=== PATIENT | male | born 1975 | race Caucasian/White ===

== ENCOUNTER 2017-08-05 08:56 | Emergency (ER) | payer BC, OTHER ==
[~2017-08-05] VITALS: Ht 175.3 cm; Wt 73.9 kg
--- NOTE | 2017-08-05 09:00 | NUR ---
Dr Stauffer at the bedside for eval and exam.
[2017-08-05 09:04] VITALS: BP 118/70
--- NOTE | 2017-08-05 09:08 | NUR ---
Patient discharged to home in stable conditon. Written and verbal after care instructions given. Patient verbalizes understanding of instructions.
== END 2017-08-05 09:08 | disposition home or self-care (01) ==
LOC: ER 08:56
DX: M54.5 Low back pain (principal)
CPT/HCPCS: A4663

== ENCOUNTER 2018-02-12 10:18 | Emergency (ER) | payer BC, OTHER ==
[~2018-02-12] VITALS: Ht 175.3 cm; Wt 74.8 kg
--- NOTE | 2018-02-12 10:33 | NUR ---
PATIENT WAS SEEN BY MD FOR C/O BACK PAIN. DC, RX AND FOLLOW UP INSTRUCTIONS GIVEN AND EXPLAINED TO PATIENT WHO STATES HE UNDERSTANDS ALL INSTRUCTIONS.
== END 2018-02-12 10:36 | disposition home or self-care (01) ==
LOC: ER 10:18
DX: M54.5 Low back pain (principal)
CPT/HCPCS: A4663

== ENCOUNTER 2018-12-13 08:42 | Emergency (ER) | payer BC, OTHER ==
[~2018-12-13] VITALS: Ht 175.3 cm; Wt 74.8 kg
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
--- NOTE | 2018-12-13 08:51 | NUR ---
Patient discharged to home in stable conditon. Written and verbal after care instructions given to patient. Patient verbalizes understanding of instructions.
== END 2018-12-13 08:52 | disposition home or self-care (01) ==
LOC: ER 08:42
DX: M54.5 Low back pain (principal); M54.6 Pain in thoracic spine; V53.5XXA Driver of pick-up truck or van injured in collision with car, pick-up truck or van in traffic accident, initial encounter; Y93.89 Activity, other specified; Y92.89 Other specified places as the place of occurrence of the external cause; Y99.8 Other external cause status
CPT/HCPCS: A4663

== ENCOUNTER 2019-05-07 14:20 | Emergency (ER) | payer BC, OTHER ==
[~2019-05-07] VITALS: Ht 175.3 cm; Wt 74.8 kg
--- NOTE | 2019-05-07 15:10 | NUR ---
Patient discharged to home in stable conditon & with steady gait. Verbal after care instructions given to patient by MD himself. Patient verbalizes understanding & compliance of instructions.
== END 2019-05-07 15:11 | disposition home or self-care (01) ==
LOC: ER 14:20
DX: M54.5 Low back pain (principal)
CPT/HCPCS: A4663

== ENCOUNTER 2019-05-30 12:38 | Emergency (ER) | payer BC, OTHER ==
[~2019-05-30] VITALS: Ht 175.3 cm; Wt 74.8 kg
--- NOTE | 2019-05-30 12:46 | NUR ---
Patient discharged to home in stable conditon. Written and verbal after care instructions given. Patient verbalizes understanding of instructions.
--- NOTE | 2019-05-30 12:46 | NUR ---
Luis greene in ED - 05/30/19 at 1247 by TITO Patient discharged to home in stable conditon & brisk steady gait. Written and verbal after care instructions given to patient. Patient verbalizes understanding of instructions.
== END 2019-05-30 12:51 | disposition home or self-care (01) ==
LOC: ER 12:38
DX: M54.5 Low back pain (principal)
CPT/HCPCS: A4663

== ENCOUNTER 2020-03-04 12:41 | Emergency (ER) | payer BC, OTHER ==
[~2020-03-04] VITALS: Ht 167.6 cm; Wt 68.0 kg
[2020-03-04 13:26] LABS: *BILIRUBIN,URIN NEGATIVE (NEGATIVE); *BLOOD, URINE NEGATIVE (NEGATIVE); *CLARITY,URINE CLEAR (CLEAR); *COLOR,URINE YELLOW (YELLOW); *KETONES,URINE NEGATIVE (NEGATIVE); *UROBILINOGEN,URINE 0.2 E.U./dl (NORMAL); LEUKOCYTE ESTERASE ,URINE NEGATIVE (NEGATIVE); NITRITE, URINE NEGATIVE (NEGATIVE); PH,URINE 6.5 (5.0-8.0); UGLUCOSE NEGATIVE (NEGATIVE)
--- NOTE | 2020-03-04 13:42 | NUR ---
Patient discharged to home in stable condition. Written and verbal after care instructions given. Patient verbalizes understanding of instructions. pt walks in steady gait.Stressed follow up or return to ER for worsening s/s.
[2020-03-04 13:43] VITALS: BP 151/88
== END 2020-03-04 13:44 | disposition home or self-care (01) ==
LOC: ER 12:41
DX: J93.9 Pneumothorax, unspecified (principal); T79.7XXA Traumatic subcutaneous emphysema, initial encounter; X50.0XXA Overexertion from strenuous movement or load, initial encounter; X50.9XXA Other and unspecified overexertion or strenuous movements or postures, initial encounter; G89.29 Other chronic pain; M54.9 Dorsalgia, unspecified
CPT/HCPCS: 71045; 93005; A4663

== ENCOUNTER 2020-03-11 14:47 | Emergency (ER) | payer BC, OTHER ==
[~2020-03-11] VITALS: Ht 175.3 cm; Wt 70.3 kg
[2020-03-11] MEDS ORDERED: IV NORMAL SALINE 1000 ML BAG IV ONE (15:00)
[2020-03-11] MEDS ORDERED: MORPHINE SULFATE 4 MG/1 ML DISP.SYRIN ONE (15:10)
[2020-03-11 15:14] LABS: BASOPHILS # (AUTO) 0.1 K/uL (0.0-8.0); BASOPHILS % (AUTO) 0.8 % (0.0-2.0); EOSINOPHILS # (AUTO) 0.2 K/uL (0.0-0.7); EOSINOPHILS % (AUTO) 2.7 % (0.0-7.0); HEMOGLOBIN 14.4 g/dL (12.5-16.3); LYMPHOCYTES # (AUTO) 2.3 K/uL (20.0-40.0); LYMPHOCYTES % (AUTO) 30.2 % (20.5-51.5); MEAN CORPUSCULAR HEMOGLOBIN 31.2 uug (23.8-33.4); MEAN CORPUSCULAR HGB CONC 34 g/dL (32.5-36.3); MEAN CORPUSCULAR VOLUME 90.9 fL (73.0-96.2); MONOCYTES # (AUTO) 0.8 K/uL (2.0-10.0); MONOCYTES % (AUTO) 10.1 % (0.0-11.0); NEUTROPHILS # (AUTO) 4.4 K/uL (1.8-8.9); NEUTROPHILS % (AUTO) 56.2 % (38.5-71.5); PLATELET COUNT (AUTO) 344 K/uL (152-348); RED BLOOD CELL COUNT(AUTO) 4.61 MIL/uL (4.06-5.63); WHITE BLOOD COUNT (AUTO) 7.8 K/uL (3.6-10.2)
[2020-03-11] MEDS ORDERED: ONDANSETRON 4 MG/2 ML VIAL IV ONE (15:15)
[2020-03-11] MEDS ORDERED: MORPHINE SULFATE 4 MG/1 ML DISP.SYRIN IV ONE (15:15)
[2020-03-11] MEDS ORDERED: ONDANSETRON 4 MG/2 ML VIAL ONE (15:16)
[2020-03-11 15:19] LABS: CREATININE 1.3 mg/dL (0.6-1.3); POTASSIUM 3.8 mmol/L (3.5-5.1)
[2020-03-11] MEDS ORDERED: IOHEXOL 300MG/ML 100 ML INFUS..BTL ONE (15:22)
[2020-03-11] MEDS ORDERED: IV NORMAL SALINE 250 ML IV ONE (15:22)
[2020-03-11] MEDS ORDERED: SWABABLE VALVE TRANSFER SET EA MC ONE (15:22)
[2020-03-11 15:25] LABS: BILIRUBIN,TOTAL 0.6 mg/dL (0.2-1.0); TOTAL PROTEIN, SERUM 8.5 g/dL (6.4-8.2)
--- NOTE | 2020-03-11 15:52 | NUR ---
PATIENT BACK FROM CT. NOT IN ANY DISTRESS.
--- NOTE | 2020-03-11 16:20 | NUR ---
DR VEGA MADE PATIENT AWARE OF TEST RESULTS.
--- NOTE | 2020-03-11 16:40 | NUR ---
IV removed. Catheter intact and site benign. Pressure and 4x4 gauze applied to site. No bleeding noted.
--- NOTE | 2020-03-11 16:43 | NUR ---
Patient discharged to home in stable condition. Written and verbal after care instructions given. Patient verbalizes understanding of instructions. Stressed follow up or return to ER for worsening s/s.
[2020-03-11 16:45] VITALS: BP 120/81
== END 2020-03-11 16:48 | disposition home or self-care (01) ==
LOC: ER 14:48
DX: S27.2XXA Traumatic hemopneumothorax, initial encounter (principal); S22.41XA Multiple fractures of ribs, right side, initial encounter for closed fracture; S22.009A Unspecified fracture of unspecified thoracic vertebra, initial encounter for closed fracture; X58.XXXA Exposure to other specified factors, initial encounter; Y92.89 Other specified places as the place of occurrence of the external cause; Y99.8 Other external cause status; Z20.828 Contact with and (suspected) exposure to other viral communicable diseases
CPT/HCPCS: 36415; 71260; 80053; 85025; 96361; 96374; 96375; 99285; J2270; J2405; Q9967; U0003; A4663; J7030; J7050

== ENCOUNTER 2020-06-25 08:08 | Emergency (ER) | payer BC, OTHER ==
[~2020-06-25] VITALS: Ht 170.2 cm; Wt 64.4 kg
[2020-06-25] MEDS ORDERED: ONDANSETRON 4 MG/2 ML VIAL ONE (08:29)
[2020-06-25] MEDS ORDERED: ONDANSETRON 4 MG/2 ML VIAL IV ONE (08:30)
[2020-06-25] MEDS ORDERED: IV NORMAL SALINE 1000 ML BAG IV ONE (08:30)
[2020-06-25 08:37] LABS: BASOPHILS % (AUTO) 0.6 % (0.0-2.0); EOSINOPHILS % (AUTO) 0.8 % (0.0-7.0); HEMATOCRIT 39.6 % (36.7-47.1); HEMOGLOBIN 14.1 g/dL (12.5-16.3); LYMPHOCYTES # (AUTO) 2.4 K/uL (20.0-40.0); LYMPHOCYTES % (AUTO) 44.7 % (20.5-51.5); MEAN CORPUSCULAR HEMOGLOBIN 32.8 uug (23.8-33.4); MEAN CORPUSCULAR HGB CONC 36 g/dL (32.5-36.3); MEAN CORPUSCULAR VOLUME 92.2 fL (73.0-96.2); MONOCYTES # (AUTO) 0.7 K/uL (2.0-10.0); MONOCYTES % (AUTO) 13.4 % (0.0-11.0); NEUTROPHILS # (AUTO) 2.2 K/uL (1.8-8.9); NEUTROPHILS % (AUTO) 40.5 % (38.5-71.5); PLATELET COUNT (AUTO) 201 K/uL (152-348); RED BLOOD CELL COUNT(AUTO) 4.29 MIL/uL (4.06-5.63); WHITE BLOOD COUNT (AUTO) 5.4 K/uL (3.6-10.2)
[2020-06-25 08:52] LABS: BILIRUBIN,DIRECT 0.4 mg/dL (0.0-0.2); CREATININE 1.2 mg/dL (0.6-1.3); POTASSIUM 2.9 mmol/L (3.5-5.1); TOTAL PROTEIN, SERUM 7.6 g/dL (6.4-8.2)
[2020-06-25] MEDS ORDERED: POTASSIUM CHLORIDE 20 MEQ TAB.PRT.SR PO ONE (09:15)
[2020-06-25] MEDS ORDERED: POTASSIUM CHLORIDE 20 MEQ TAB.PRT.SR ONE (09:20)
[2020-06-25 10:03] VITALS: BP 129/81
== END 2020-06-25 10:03 | disposition home or self-care (01) ==
LOC: ER 08:08
DX: K52.9 Noninfective gastroenteritis and colitis, unspecified (principal); E87.6 Hypokalemia; G89.29 Other chronic pain; M54.9 Dorsalgia, unspecified; Z20.828 Contact with and (suspected) exposure to other viral communicable diseases
CPT/HCPCS: 36415; 80048; 80076; 83690; 85025; 87426; 96361; 96374; 99284; J2405; A4663; J7030

== ENCOUNTER 2020-11-12 21:52 | Emergency (ER) | payer BC, OTHER ==
[~2020-11-12] VITALS: Ht 172.7 cm; Wt 61.2 kg
[2020-11-12] MEDS ORDERED: NITROGLYCERIN OINT 1 GM PACKET TP ONE ×2 (22:15→22:30)
[2020-11-12] MEDS ORDERED: ENALAPRILAT DIHYDRATE 1.25 MG/1 ML VIAL IV ONE ×2 (22:15→22:30)
[2020-11-12] MEDS ORDERED: ONDANSETRON 4 MG/2 ML VIAL IV ONE (22:15)
[2020-11-12] MEDS ORDERED: IV NORMAL SALINE 1000 ML BAG IV ONE ×2 (22:15→23:45)
[2020-11-12 22:30] LABS: BASOPHILS % (AUTO) 0.2 % (0.0-2.0); EOSINOPHILS % (AUTO) 0.2 % (0.0-7.0); HEMATOCRIT 42.1 % (36.7-47.1); HEMOGLOBIN 14.6 g/dL (12.5-16.3); LYMPHOCYTES # (AUTO) 1.3 K/uL (20.0-40.0); LYMPHOCYTES % (AUTO) 22.8 % (20.5-51.5); MEAN CORPUSCULAR HEMOGLOBIN 31.2 uug (23.8-33.4); MEAN CORPUSCULAR HGB CONC 35 g/dL (32.5-36.3); MONOCYTES # (AUTO) 0.7 K/uL (2.0-10.0); MONOCYTES % (AUTO) 11.8 % (0.0-11.0); NEUTROPHILS # (AUTO) 3.6 K/uL (1.8-8.9); PLATELET COUNT (AUTO) 232 K/uL (152-348); RED BLOOD CELL COUNT(AUTO) 4.68 MIL/uL (4.06-5.63); WHITE BLOOD COUNT (AUTO) 5.6 K/uL (3.6-10.2)
[2020-11-12] MEDS ORDERED: ONDANSETRON 4 MG/2 ML VIAL ONE (22:30)
[2020-11-12 22:41] LABS: CREATININE 1.1 mg/dL (0.6-1.3); POTASSIUM 3.1 mmol/L (3.5-5.1)
[2020-11-12 22:53] LABS: BILIRUBIN,DIRECT 0.2 mg/dL (0.0-0.2); BILIRUBIN,TOTAL 0.7 mg/dL (0.2-1.0); TOTAL PROTEIN, SERUM 8.2 g/dL (6.4-8.2)
[2020-11-12] MEDS ORDERED: POTASSIUM CHLORIDE 20 MEQ TAB.PRT.SR PO ONE (23:00)
[2020-11-12] MEDS ORDERED: POTASSIUM CHLORIDE 20 MEQ TAB.PRT.SR ONE (23:23)
[2020-11-12] MEDS ORDERED: CLONIDINE HCL 0.1 MG TABLET PO ONE (23:30)
[2020-11-12] MEDS ORDERED: METOPROLOL TARTRATE 5 MG/5 ML VIAL IVP ONE (23:30)
[2020-11-12 23:39] LABS: *BILIRUBIN,URIN NEGATIVE (NEGATIVE); *BLOOD, URINE NEGATIVE (NEGATIVE); *CLARITY,URINE CLEAR (CLEAR); *COLOR,URINE LIGHT YELLOW (YELLOW); *KETONES,URINE NEGATIVE (NEGATIVE); *UROBILINOGEN,URINE 0.2 E.U./dl (NORMAL); LEUKOCYTE ESTERASE ,URINE NEGATIVE (NEGATIVE); NITRITE, URINE NEGATIVE (NEGATIVE); UGLUCOSE NEGATIVE (NEGATIVE)
[2020-11-13] MEDS ORDERED: ENAL2.5T17 PO (00:14)
[2020-11-13] MEDS ORDERED: ONDA4TAB11 PO (00:14)
[2020-11-13] MEDS ORDERED: CLON0.1T PO (00:14)
--- NOTE | 2020-11-13 00:19 | NUR ---
Patient discharged to home in stable condition. Written and verbal after care instructions given. Patient verbalizes understanding of instructions. Stressed follow up or return to ER for worsening s/s. IV removed. Catheter intact and site benign. Pressure and 4x4 gauze applied to site. No bleeding noted. Patient ambulated with steady gait.
[2020-11-13 00:22] VITALS: BP 139/94
== END 2020-11-13 00:22 | disposition home or self-care (01) ==
LOC: ER 21:54
DX: I10 Essential (primary) hypertension (principal); R55 Syncope and collapse; E87.6 Hypokalemia; Z82.49 Family history of ischemic heart disease and other diseases of the circulatory system; Z79.899 Other long term (current) drug therapy; Z20.822 Contact with and (suspected) exposure to COVID-19
CPT/HCPCS: 36415; 71045; 80048; 80076; 81003; 83880; 84484; 85025; 85379; 85730; 87426; 93005; 96361; 96374; 96375; 99285; J2405; J3490; U0003; 70030-TC; A4663; J7030

== ENCOUNTER 2021-08-17 12:06 | Emergency (ER) | payer BC, OTHER ==
[~2021-08-17] VITALS: Ht 175.3 cm; Wt 74.8 kg
[~2021-08-17 12:06] MED LIST: CLON0.1T PO; ENAL2.5T17 PO; ONDA4TAB11 PO
[2021-08-17] MEDS ORDERED: [UNRECOGNIZED DRUG - CODE] PO (12:28)
[2021-08-17] MEDS ORDERED: AMOX875T2 PO (12:28)
[2021-08-17] MEDS ORDERED: OXYC-133 PO (13:15)
== END 2021-08-17 12:42 | disposition home or self-care (01) ==
LOC: ER 12:06
DX: J02.8 Acute pharyngitis due to other specified organisms (principal); Z20.822 Contact with and (suspected) exposure to COVID-19; M54.50 Low back pain, unspecified; J45.909 Unspecified asthma, uncomplicated
CPT/HCPCS: 86403; 87070; A4663

== ENCOUNTER 2021-10-04 18:42 | Emergency (ER) | payer BC, OTHER ==
[~2021-10-04] VITALS: Ht 175.3 cm; Wt 74.8 kg
[~2021-10-04 18:42] MED LIST changes: +AMOX875T2 PO; +OXYC-133 PO; +[UNRECOGNIZED DRUG - CODE] PO
--- NOTE | 2021-10-04 18:50 | NUR ---
PT IS IN ROOM #5. DR LANTIGUA EVALUATED THE PT.
[2021-10-04] MEDS ORDERED: CYCL5TAB PO (18:56)
[2021-10-04] MEDS ORDERED: OXYC-128 PO (18:56)
== END 2021-10-04 19:15 | disposition home or self-care (01) ==
LOC: ER 18:43
DX: M54.50 Low back pain, unspecified (principal); G89.29 Other chronic pain; Z87.09 Personal history of other diseases of the respiratory system
CPT/HCPCS: A4663

== ENCOUNTER 2021-12-12 18:05 | Emergency (ER) | payer BC, OTHER ==
[~2021-12-12] VITALS: Ht 175.3 cm; Wt 74.8 kg
[~2021-12-12 18:05] MED LIST changes: +CYCL5TAB PO
[2021-12-12] MEDS ORDERED: LORA2TAB95 PO (18:18)
== END 2021-12-12 18:26 | disposition home or self-care (01) ==
LOC: ER 18:07
DX: F41.9 Anxiety disorder, unspecified (principal)
CPT/HCPCS: A4663

== ENCOUNTER 2022-01-08 22:27 | Emergency (ER) | payer BC, OTHER ==
[~2022-01-08] VITALS: Ht 175.3 cm; Wt 74.8 kg
[~2022-01-08 22:27] MED LIST changes: -AMOX875T2 PO; -CLON0.1T PO; -CYCL5TAB PO; -ENAL2.5T17 PO; +LORA2TAB95 PO; -ONDA4TAB11 PO; -OXYC-133 PO; -[UNRECOGNIZED DRUG - CODE] PO
--- NOTE | 2022-01-08 22:30 | NUR ---
Dr. Tomas at bedside for MSE.
[2022-01-08] MEDS ORDERED: LORA-259 PO (22:52)
[2022-01-08] MEDS ORDERED: OXYC-128 PO (22:52)
--- NOTE | 2022-01-08 22:55 | NUR ---
Patient discharged to home in stable condition. Written and verbal after care instructions given. Patient verbalizes understanding of instructions. Stressed follow up or return to ER for worsening s/s. Patient out of ER with steady gait, no acute signs of distress, VSS, all belongings taken.
[2022-01-08 22:56] VITALS: BP 135/66
== END 2022-01-08 22:56 | disposition home or self-care (01) ==
LOC: ER 22:40
DX: M54.9 Dorsalgia, unspecified (principal); F41.9 Anxiety disorder, unspecified; G89.29 Other chronic pain; Z87.09 Personal history of other diseases of the respiratory system
CPT/HCPCS: A4663

== ENCOUNTER 2022-03-24 11:45 | Emergency (ER) | payer OTHER ==
[~2022-03-24] VITALS: Ht 175.3 cm; Wt 74.8 kg
[~2022-03-24 11:45] MED LIST changes: +LORA-259 PO; +OXYC-128 PO
--- NOTE | 2022-03-24 11:46 | NUR ---
MD at bedside, medical screening exam in progress.
--- NOTE | 2022-03-24 12:00 | NUR ---
MD performed suture removal on RLQ and mid abdomen.
[2022-03-24] MEDS ORDERED: NEOMY/BACITRA/POLYMYXIN B OINT UD PACKET TP ONE (12:05)
[2022-03-24 12:36] VITALS: BP 122/70
== END 2022-03-24 12:36 | disposition home or self-care (01) ==
LOC: ER 11:45
DX: S31.119D Laceration without foreign body of abdominal wall, unspecified quadrant without penetration into peritoneal cavity, subsequent encounter (principal); X99.1XXD Assault by knife, subsequent encounter; J45.909 Unspecified asthma, uncomplicated; G89.29 Other chronic pain; M54.9 Dorsalgia, unspecified; M79.661 Pain in right lower leg
CPT/HCPCS: A4663

== ENCOUNTER 2022-03-29 09:36 | Emergency (ER) | payer OTHER ==
[~2022-03-29] VITALS: Ht 170.2 cm; Wt 79.4 kg
--- NOTE | 2022-03-29 10:06 | NUR ---
Pt arrived in ER using crutches, pt has sutures approximate to Rt hip x3. The suture site is C/D/I. pt c/o hip pain while sitting, standing and more w/ walking.
[2022-03-29] MEDS ORDERED: CEPH500C2 PO (10:18)
[2022-03-29] MEDS ORDERED: IBUP-1955 PO (10:18)
--- NOTE | 2022-03-29 10:33 | NUR ---
Dr Atkins at the bedside for MSE.
--- NOTE | 2022-03-29 10:35 | NUR ---
Dr Lentz removed the sutures, no acute bleeding and no S/S infection noted. Pt is currently on ABX.
--- NOTE | 2022-03-29 10:51 | NUR ---
Patient discharged to home in stable condition. Written and verbal after care instructions given. Patient verbalizes understanding of instructions. Stressed follow up or return to ER for worsening s/s. pt left ER using crutches.
[2022-03-29 10:52] VITALS: BP 140/97
== END 2022-03-29 10:53 | disposition home or self-care (01) ==
LOC: ER 09:36
DX: S31.113D Laceration without foreign body of abdominal wall, right lower quadrant without penetration into peritoneal cavity, subsequent encounter (principal); X99.1XXD Assault by knife, subsequent encounter
CPT/HCPCS: A4663

== ENCOUNTER 2022-05-04 14:35 | Emergency (ER) | payer BC, OTHER ==
[~2022-05-04] VITALS: Ht 167.6 cm; Wt 72.6 kg
[~2022-05-04 14:35] MED LIST changes: +CEPH500C2 PO; +IBUP-1955 PO
[2022-05-04] MEDS ORDERED: IV NORMAL SALINE 1000 ML BAG IV ONE (14:45)
[2022-05-04 15:00] LABS: HEMATOCRIT 44.2 % (36.7-47.1); MEAN CORPUSCULAR HEMOGLOBIN 27.9 uug (23.8-33.4); MEAN CORPUSCULAR VOLUME 82.3 fL (73.0-96.2); PLATELET COUNT (AUTO) 343 K/uL (152-348)
[2022-05-04] MEDS ORDERED: ONDANSETRON 4 MG/2 ML VIAL ONE (15:12)
[2022-05-04] MEDS ORDERED: ONDANSETRON 4 MG/2 ML VIAL IV ONE (15:15)
[2022-05-04] MEDS ORDERED: LORAZEPAM 2 MG/1 ML VIAL ONE (15:39)
[2022-05-04] MEDS ORDERED: LORAZEPAM 2 MG/1 ML VIAL IV ONE (15:45)
[2022-05-04 15:58] LABS: CARBON DIOXIDE 27 mmol/L (21-32); CHLORIDE 102 mmol/L (98-107); CREATININE 1.4 mg/dL (0.6-1.3); GLUCOSE 103 mg/dL (74-106); UREA NITROGEN, BLOOD 9 mg/dL (7-18)
[2022-05-04 16:14] LABS: ALANINE AMINOTRANSFERASE 33 U/L (16-63); ALKALINE PHOSPHATASE 79 U/L (50-136); ASPARTATE AMINOTRANSFERASE 14 U/L (15-37); BILIRUBIN,DIRECT 0.1 mg/dL (0.0-0.2); BILIRUBIN,TOTAL 0.4 mg/dL (0.2-1.0); LIPASE 86 U/L (73-393); TOTAL PROTEIN, SERUM 8.2 g/dL (6.4-8.2)
[2022-05-04] MEDS ORDERED: ONDA4TAB11 PO (16:41)
[2022-05-04] MEDS ORDERED: LORA-259 PO (16:41)
--- NOTE | 2022-05-04 16:46 | NUR ---
Note ramona in ED - 05/04/22 at 1756 by NATHANIEL Pt seemed frustrated and pulled bipap mask off his face along with a couple wires from the monitor. Reassured pt and hooked everything back up. Pt seemed better.
--- NOTE | 2022-05-04 17:17 | NUR ---
Removed IV intact, site okay, bandaged. Gave pt d/c instructions, pt verbalized understanding.
== END 2022-05-04 17:25 | disposition home or self-care (01) ==
LOC: ER 14:35
DX: R19.7 Diarrhea, unspecified (principal); R11.2 Nausea with vomiting, unspecified; F41.9 Anxiety disorder, unspecified; I49.3 Ventricular premature depolarization; Z87.09 Personal history of other diseases of the respiratory system
CPT/HCPCS: 99284; 96374; 96361; 96375; 80076; 80048; 83690; 85025; 84484; 36415; 93005; J2060; J2405; J7040; A4663

== ENCOUNTER 2023-06-15 07:20 | Day surgery (SDC) | payer BC, OTHER ==
[~2023-06-15 07:20] MED LIST changes: +ONDA4TAB11 PO
[2023-06-15 12:20] VITALS: TEMP 97.5
[2023-06-15] MEDS ORDERED: LIDOCAINE-MPF 2% 5 ML VIAL ONE (14:00)
[2023-06-15] MEDS ORDERED: PROPOFOL 200 MG/20 ML BOTTLE ONE (14:00)
== END 2023-06-15 12:30 | disposition home or self-care (01) ==
LOC: DS 07:20
PROVIDERS: ATTEND Surgery
DX: K52.9 Noninfective gastroenteritis and colitis, unspecified (principal); R10.13 Epigastric pain; K44.9 Diaphragmatic hernia without obstruction or gangrene; K29.50 Unspecified chronic gastritis without bleeding; K63.89 Other specified diseases of intestine; F41.9 Anxiety disorder, unspecified; E66.3 Overweight; Z79.899 Other long term (current) drug therapy; Z98.890 Other specified postprocedural states
CPT/HCPCS: 43239; 45380; 88305; 88313; 88342; J3490; J7120; A4663

== ENCOUNTER 2025-02-05 18:03 | Emergency (ER) | payer BC, OTHER ==
[~2025-02-05] VITALS: Ht 175.3 cm; Wt 77.1 kg
[2025-02-05 18:32] LABS: BASOPHILS % (AUTO) 0.5 % (0.0-2.0); EOSINOPHILS # (AUTO) 0.1 K/uL (0.0-0.7); EOSINOPHILS % (AUTO) 1.3 % (0.0-7.0); HEMATOCRIT 37.4 % (36.7-47.1); HEMOGLOBIN 12.8 g/dL (12.5-16.3); LYMPHOCYTES % (AUTO) 26.1 % (20.5-51.5); MEAN CORPUSCULAR HEMOGLOBIN 27.6 uug (23.8-33.4); MEAN CORPUSCULAR HGB CONC 34 g/dL (32.5-36.3); MONOCYTES # (AUTO) 0.6 K/uL (0.1-1.30); NEUTROPHILS % (AUTO) 64.1 % (38.5-71.5); PLATELET COUNT (AUTO) 350 K/uL (152-348); RED BLOOD CELL COUNT(AUTO) 4.62 MIL/uL (4.06-5.63); RED CELL DISTRIBUTION WIDTH 14.8 % (12.1-16.2); WHITE BLOOD COUNT (AUTO) 7.8 K/uL (3.6-10.2)
[2025-02-05 18:36] LABS: DIFFERENTIAL COMMENT 1
[2025-02-05 18:41] LABS: CALCIUM 8.7 mg/dL (8.5-10.1); POTASSIUM 3.9 mmol/L (3.5-5.1)
[2025-02-05] MEDS ORDERED: CLONIDINE HCL 0.1 MG TABLET ONE ×2 (19:33→21:56)
[2025-02-05] MEDS: CLONIDINE HCL 0.1 MG TABLET PO ONE ×2 (19:35→21:58)
[2025-02-05 19:59] LABS: NT-PRO BNP 23 pg/mL (0-125)
[2025-02-05] MEDS: IV NORMAL SALINE 1000 ML BAG IV ONE (20:27)
[2025-02-05] MEDS ORDERED: LORAZEPAM 2 MG/1 ML VIAL ONE (20:29)
[2025-02-05] MEDS: LORAZEPAM 2 MG/1 ML VIAL IV ONE (20:33)
[2025-02-05 22:31] VITALS: BP 140/106; O2SAT 96
[2025-02-07] MEDS ORDERED: TRAN650T2 PO (11:04)
== END 2025-02-05 22:00 | disposition home or self-care (01) ==
LOC: ER 18:16
DX: R04.0 Epistaxis (principal); R03.0 Elevated blood-pressure reading, without diagnosis of hypertension; R00.0 Tachycardia, unspecified; Z79.1 Long term (current) use of non-steroidal anti-inflammatories (NSAID); Z88.7 Allergy status to serum and vaccine; Z98.890 Other specified postprocedural states; Z86.79 Personal history of other diseases of the circulatory system; Z87.19 Personal history of other diseases of the digestive system
CPT/HCPCS: 99284; 96374; 96361; 80048; 83880; 85025; 85379; 85730; 84484; 36415; 93005; J2060; J7040; A4606; A4663

== ENCOUNTER 2025-02-11 19:07 | Emergency (ER) | payer BC, OTHER ==
[~2025-02-11] VITALS: Ht 172.7 cm; Wt 76.2 kg
[~2025-02-11 19:07] MED LIST changes: -CEPH500C2 PO; -IBUP-1955 PO; -LORA-259 PO; -LORA2TAB95 PO; -ONDA4TAB11 PO; -OXYC-128 PO; +TRAN650T2 PO
[2025-02-11] MEDS ORDERED: LIDOCAINE 4% TOPICAL 50 ML BOTTLE ONE (19:22)
[2025-02-11] MEDS ORDERED: TRANEXAMIC ACID 1,000 MG/10 ML VIAL ONE (19:22)
[2025-02-11] MEDS ORDERED: OXYMETAZOLINE NASAL 0.05% 15 ML SPRAY NS ONE (19:22)
[2025-02-11] MEDS ORDERED: hydrALAZINE HCL 10 MG TABLET ONE (19:27)
[2025-02-11] MEDS ORDERED: hydrALAZINE HCL 20 MG/1 ML VIAL ONE (19:29)
[2025-02-11] MEDS ORDERED: CLON0.1T PO (19:44)
[2025-02-11] MEDS: IV NORMAL SALINE 1000 ML BAG IV ONE ×2 (19:50→20:22)
[2025-02-11 19:56] LABS: BASOPHILS # (AUTO) 0.1 K/UL (0.0-0.2); BASOPHILS % (AUTO) 0.6 % (0.0-2.0); DIFFERENTIAL COMMENT 1; EOSINOPHILS # (AUTO) 0.2 K/uL (0.0-0.7); EOSINOPHILS % (AUTO) 2.2 % (0.0-7.0); HEMATOCRIT 39.3 % (36.7-47.1); HEMOGLOBIN 13.2 g/dL (12.5-16.3); LYMPHOCYTES # (AUTO) 1.9 K/uL (0.8-4.8); LYMPHOCYTES % (AUTO) 19.5 % (20.5-51.5); MEAN CORPUSCULAR HEMOGLOBIN 27.4 uug (23.8-33.4); MEAN CORPUSCULAR HGB CONC 34 g/dL (32.5-36.3); MEAN CORPUSCULAR VOLUME 81.5 fL (73.0-96.2); MONOCYTES # (AUTO) 0.6 K/uL (0.1-1.30); MONOCYTES % (AUTO) 6.5 % (0.0-11.0); NEUTROPHILS # (AUTO) 6.8 K/uL (1.8-8.9); NEUTROPHILS % (AUTO) 71.2 % (38.5-71.5); PLATELET COUNT (AUTO) 354 K/uL (152-348); RED BLOOD CELL COUNT(AUTO) 4.82 MIL/uL (4.06-5.63); RED CELL DISTRIBUTION WIDTH 14.9 % (12.1-16.2); WHITE BLOOD COUNT (AUTO) 9.5 K/uL (3.6-10.2)
[2025-02-11 20:03] LABS: CALCIUM 8.9 mg/dL (8.5-10.1); CREATININE 1.1 mg/dL (0.6-1.3); POTASSIUM 4.2 mmol/L (3.5-5.1)
[2025-02-11 20:09] LABS: ALBUMIN 3.9 g/dL (3.4-5.0); BILIRUBIN,DIRECT 0.1 mg/dL (0.0-0.2); BILIRUBIN,TOTAL 0.3 mg/dL (0.2-1.0)
[2025-02-11] MEDS ORDERED: HYDROMORPHONE 1 MG/1 ML DISP.SYRIN ONE (20:11)
[2025-02-11] MEDS ORDERED: ONDANSETRON 4 MG/2 ML VIAL ONE (20:11)
[2025-02-11] MEDS: ONDANSETRON 4 MG/2 ML VIAL IV ONE (20:13)
[2025-02-11] MEDS: HYDROMORPHONE 1 MG/1 ML DISP.SYRIN IV ONE (20:14)
[2025-02-11] MEDS: LIDOCAINE VISCUS 2% 15 ML UDC MM ONE (20:21)
[2025-02-11] MEDS: OXYMETAZOLINE NASAL 0.05% 15 ML SPRAY NS ONE (20:22)
[2025-02-11] MEDS: LIDOCAINE 4% TOPICAL 50 ML BOTTLE TP ONE (20:22)
[2025-02-11] MEDS: TRANEXAMIC ACID 1,000 MG/10 ML VIAL IR ONE (20:23)
[2025-02-11 20:55] VITALS: BP 145/76; TEMP 98; O2SAT 99
== END 2025-02-11 20:55 | disposition home or self-care (01) ==
LOC: ER 19:10
DX: R04.0 Epistaxis (principal); G89.29 Other chronic pain; M54.50 Low back pain, unspecified; Z79.1 Long term (current) use of non-steroidal anti-inflammatories (NSAID); Z88.7 Allergy status to serum and vaccine; Z98.890 Other specified postprocedural states; Z86.79 Personal history of other diseases of the circulatory system; Z87.19 Personal history of other diseases of the digestive system
CPT/HCPCS: 99284; 96374; 96361; 96375; 80076; 80048; 85025; 85610; 36415; J1171; J0360; J2405; A4606; A4663